=== PATIENT | female | born 1990 ===

== ENCOUNTER 2019-10-12 22:05 | Emergency (ER) | payer SELFPAY ==
[2019-10-12] MEDS ORDERED: NA CHLORIDE 0.9% 1,000 ML ONE (23:15)
[2019-10-12 23:27] LABS: Protime INR 0.95
[2019-10-12 23:28] LABS: Absolute Lymphocytes (CBC) 3.1 K/uL (0.7-4.9); Basophils % 0.6 % (0-1.3); Hematocrit 35.9 % (36.0-45.0); Lymphocytes % 32.7 % (15.3-44.8); MPV 7.7 fL (7.6-11.3)
[2019-10-12 23:42] LABS: ALT/SGPT 37 U/L (12-78); AST/SGOT 32 U/L (15-37); Albumin 3.1 g/dL (3.4-5.0); Alkaline Phosphatase 90 U/L (45-117); BUN Blood Urea Nitrogen 14 mg/dL (7-18); Bicarbonate 26 mmol/L (21-32); Bilirubin Direct < 0.1 mg/dL (0-0.2); Bilirubin Total 0.1 mg/dL (0.2-1.0); Glucose Level 82 mg/dL (74-106); Magnesium 2.2 mg/dL (1.8-2.4); NT PRO-BNP 19 pg/mL (<125); Potassium 3.7 mmol/L (3.5-5.1); Protein, Total 6.6 g/dL (6.4-8.2); Sodium Level 142 mmol/L (136-145); Troponin (Emerg Dept Use Only) < 0.02 ng/mL (0.0-0.045)
--- NOTE | 2019-10-12 23:57 | ER ---
Nurse's Notes [facility] Name: Mary Carrasco Age: 29 yrs Sex: Female : 1990 Arrival Date: 10/12/2019 Time: 22:08 Bed 14 Private MD: Diagnosis: Weakness;Dyspnea;Unspecified kidney failure-insufficency Presentation: 10/12 22:18 Presenting complaint: Patient states: Fatigue, shortness of breath, general weakness x4 lp1 days; States hx of asthma, no relief with inhaler; She feels like her iron is low. Transition of care: patient was not received from another setting of care. Onset of symptoms was October 12, 2019. Risk Assessment: Do you want to hurt yourself or someone else? Patient reports no desire to harm self or others. Initial Sepsis Screen: Does the patient meet any 2 criteria? No. Patient's initial sepsis screen is negative. Does the patient have a suspected source of infection? No. Patient's initial sepsis screen is negative. Care prior to arrival: None. 22:18 Method Of Arrival: Ambulatory lp1 22:18 Acuity: JENNIFER 3 lp1 Triage Assessment: 10/13 00:45 General: Appears in no apparent distress. Behavior is calm, cooperative. Respiratory: lc1 Onset: The symptoms/episode began/occurred. Respiratory: Reports shortness of breath at rest the patient has mild shortness of breath. 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 - Social history:: Smoking status: Patient/guardian denies using tobacco. - Ebola Screening: : No symptoms or risks identified at this time. - Family history:: not pertinent. Screenin:22 Abuse screen: Denies threats or abuse. Abuse screen: Denies injuries from another. lp1 Nutritional screening: No deficits noted. Tuberculosis screening: No symptoms or risk factors identified. Fall Risk None identified. Assessment: 22:21 General: Appears in no apparent distress. comfortable, Behavior is calm, cooperative. lc1 Pain: Denies pain. Neuro: No deficits noted. Cardiovascular: Rhythm is regular. Respiratory: Airway is patent Respiratory effort is even, unlabored, Breath sounds are clear bilaterally. GI: No signs and/or symptoms were reported involving the gastrointestinal system. : No signs and/or symptoms were reported regarding the genitourinary system. EENT: No signs and/or symptoms were reported regarding the EENT system. Derm: No signs and/or symptoms reported regarding the dermatologic system. Musculoskeletal: Parent/caregiver report the patient having feeling fatigue and weakness for several days, states she feel like she is anemic, with little bit of SOB. 23:00 Reassessment: No changes from previously documented assessment. Patient and/or family lc1 updated on plan of care and expected duration. Pain level reassessed. Patient is alert, oriented x 3, equal unlabored respirations, skin warm/dry/pink. 10/13 00:00 Reassessment: No changes from previously documented assessment. Patient and/or family lc1 updated on plan of care and expected duration. Pain level reassessed. Patient is alert, oriented x 3, equal unlabored respirations, skin warm/dry/pink. Patient states symptoms have improved. Vital Signs: 10/12 22:19 BP 119 / 71; Pulse 95; Resp 18; Temp 98.2(O); Pulse Ox 96% on R/A; Weight 98.43 kg (M); lp1 Height 5 ft. 4 in. (162.56 cm); Pain 0/10; 23:00 BP 91 / 61; Pulse 79; Resp 18; Pulse Ox 98% on R/A; lc1 10/13 00:00 BP 102 / 63; Pulse 75; Resp 18; Pulse Ox 100% on R/A; lc1 10/12 22:19 Body Mass Index 37.25 (98.43 kg, 162.56 cm) lp1 ED Course: 10/12 22:08 Patient arrived in ED. cl3 22:19 Triage completed. lp1 22:19 Arm band placed on. lp1 22:21 Chery Wallace is Primary Nurse. lc1 22:21 Patient has correct armband on for positive identification. Bed in low position. Call lc1 light in reach. Side rails up X 1. Pulse ox on. NIBP on. Door closed. Noise minimized. Warm blanket given. 22:21 No provider procedures requiring assistance completed. lc1 22:31 Berny Almazan MD is Attending Physician. [facility] 23:00 No apparent distress. Awaiting lab results. 1 23:00 Door closed. Lights dimmed. lc1 23:00 Inserted saline lock: 22 gauge in left antecubital area, using aseptic technique. Blood 1 collected. 23:56 Nissa Gong MD is Referral Physician. [facility] 10/13 00:43 IV discontinued, intact, bleeding controlled, Pressure dressing applied. 1 00:55 XRAY Chest (1 view) In Process Unspecified. EDMS Administered Medications: 10/12 23:16 Drug: NS 0.9% 1000 ml Route: IV; Rate: 1 bolus; Site: left antecubital; 1 10/13 00:28 Follow up: Response: No adverse reaction; IV Status: Completed infusion lc1 Outcome: 10/12 23:56 Discharge ordered by . [facility] 10/13 00:44 Discharged to home ambulatory. [facility] Condition: good Discharge instructions given to patient, Instructed on discharge instructions, follow up and referral plans. medication usage, Demonstrated understanding of instructions, follow-up care, medications, Prescriptions given X 1. 00:46 Patient left the ED. 1 Signatures: Dispatcher [employer] EDTX Berny Almazan MD MD cha Calhoun, Lisa 1 Megan Wick, RN RN lp1 Veronica Martin cl3
--- NOTE | 2019-10-12 23:58 | EDPHYS ---
Physician Documentation [facility] Name: Mary Carrasco Age: 29 yrs Sex: Female : 1990 Arrival Date: 10/12/2019 Time: 22:08 Bed 14 Private MD: ED Physician Berny Almazan HPI: 10/12 22:41 This 29 yrs old Female presents to ER via Ambulatory with complaints of julieta Shortness Of Breath, Weakness. 22:41 The patient has shortness of breath at rest, with light activity. Onset: The julieta symptoms/episode began/occurred 3 day(s) ago. Duration: The symptoms are continuous, and are unchanged since they started. Associated signs and symptoms: The patient has no apparent associated signs or symptoms. Severity of symptoms: At their worst the symptoms were very mild in the emergency department the symptoms are unchanged. The patient has not experienced similar symptoms in the past. 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 - Social history:: Smoking status: Patient/guardian denies using tobacco. - Ebola Screening: : No symptoms or risks identified at this time. - Family history:: not pertinent. ROS: 22:41 Constitutional: Negative for fever, chills, and weight loss, Eyes: Negative for injury, julieta pain, redness, and discharge, ENT: Negative for injury, pain, and discharge, Neck: Negative for injury, pain, and swelling, Cardiovascular: Negative for chest pain, palpitations, and edema, Abdomen/GI: Negative for abdominal pain, nausea, vomiting, diarrhea, and constipation, Back: Negative for injury and pain, : Negative for injury, bleeding, discharge, and swelling, MS/Extremity: Negative for injury and deformity, Skin: Negative for injury, rash, and discoloration, Neuro: Negative for headache, weakness, numbness, tingling, and seizure, Psych: Negative for depression, anxiety, suicide ideation, homicidal ideation, and hallucinations, Allergy/Immunology: Negative for hives, rash, and allergies, Endocrine: Negative for neck swelling, polydipsia, polyuria, polyphagia, and marked weight changes, Hematologic/Lymphatic: Negative for swollen nodes, abnormal bleeding, and unusual bruising. 22:41 Respiratory: Positive for cough, with no reported sputum. 22:41 MS/extremity: Negative for acute changes. Exam: 22:41 Constitutional: This is a well developed, well nourished patient who is awake, alert, julieta and in no acute distress. Head/Face: Normocephalic, atraumatic. Eyes: Pupils equal round and reactive to light, extra-ocular motions intact. Lids and lashes normal. Conjunctiva and sclera are non-icteric and not injected. Cornea within normal limits. Periorbital areas with no swelling, redness, or edema. ENT: Nares patent. No nasal discharge, no septal abnormalities noted. Tympanic membranes are normal and external auditory canals are clear. Oropharynx with no redness, swelling, or masses, exudates, or evidence of obstruction, uvula midline. Mucous membranes moist. Neck: Trachea midline, no thyromegaly or masses palpated, and no cervical lymphadenopathy. Supple, full range of motion without nuchal rigidity, or vertebral point tenderness. No Meningismus. Chest/axilla: Normal chest wall appearance and motion. Nontender with no deformity. No lesions are appreciated. Cardiovascular: Regular rate and rhythm with a normal S1 and S2. No gallops, murmurs, or rubs. Normal PMI, no JVD. No pulse deficits. Respiratory: Lungs have equal breath sounds bilaterally, clear to auscultation and percussion. No rales, rhonchi or wheezes noted. No increased work of breathing, no retractions or nasal flaring. Abdomen/GI: Soft, non-tender, with normal bowel sounds. No distension or tympany. No guarding or rebound. No evidence of tenderness throughout. Back: No spinal tenderness. No costovertebral tenderness. Full range of motion. Skin: Warm, dry with normal turgor. Normal color with no rashes, no lesions, and no evidence of cellulitis. MS/ Extremity: Pulses equal, no cyanosis. Neurovascular intact. Full, normal range of motion. Neuro: Awake and alert, GCS 15, oriented to person, place, time, and situation. Cranial nerves II-XII grossly intact. Motor strength 5/5 in all extremities. Sensory grossly intact. Cerebellar exam normal. Normal gait. Psych: Awake, alert, with orientation to person, place and time. Behavior, mood, and affect are within normal limits. 22:41 Musculoskeletal/extremity: DVT Exam: No signs of deep vein thrombosis. no pain, no swelling, no tenderness, negative Homans' sign noted on exam, no appreciated bluish discoloration, no erythema, no increased warmth. Vital Signs: 22:19 BP 119 / 71; Pulse 95; Resp 18; Temp 98.2(O); Pulse Ox 96% on R/A; Weight 98.43 kg (M); lp1 Height 5 ft. 4 in. (162.56 cm); Pain 0/10; 23:00 BP 91 / 61; Pulse 79; Resp 18; Pulse Ox 98% on R/A; 1 10/13 00:00 BP 102 / 63; Pulse 75; Resp 18; Pulse Ox 100% on R/A; [facility] 10/12 22:19 Body Mass Index 37.25 (98.43 kg, 162.56 cm) lp1 MDM: 10/12 22:[address] [facility] 22:45 Data reviewed: vital signs, nurses notes, lab test result(s), EKG, radiologic studies, [facility] CT scan, plain films. 10/12 22:41 Order name: Basic Metabolic Panel; Complete Time: 23:49 [facility] 10/12 22:41 Order name: CBC with Diff; Complete Time: 23:55 [facility] 10/12 22:41 Order name: LFT's; Complete Time: 23:49 [facility] 10/12 22:41 Order name: Magnesium; Complete Time: 23:49 [facility] 10/12 22:41 Order name: NT PRO-BNP; Complete Time: 23:49 [facility] 10/12 22:41 Order name: PT-INR; Complete Time: 23:49 [facility] 10/12 22:41 Order name: Troponin (emerg Dept Use Only); Complete Time: 23:49 [facility] 10/12 22:41 Order name: XRAY Chest (1 view) [facility] 10/12 22:41 Order name: EKG; Complete Time: 22:42 [facility] 10/12 22:41 Order name: Cardiac monitoring; Complete Time: 23:37 [facility] 10/12 22:41 Order name: EKG - Nurse/Tech; Complete Time: 23:37 [facility] 10/12 22:41 Order name: IV Saline Lock; Complete Time: 23:37 [facility] 10/12 22:41 Order name: D-Dimer; Complete Time: 23:49 [facility] 10/12 22:41 Order name: Labs collected and sent; Complete Time: 23:37 [facility] 10/12 22:41 Order name: O2 Per Protocol; Complete Time: 23:37 [facility] 10/12 22:41 Order name: O2 Sat Monitoring; Complete Time: 23:38 [facility] 10/12 22:41 Order name: Urine Test (obtain specimen); Complete Time: 23:37 [facility] 10/12 22:41 Order name: Urine Dipstick-Ancillary (obtain specimen); Complete Time: 23:37 [facility] Administered Medications: 23:16 Drug: NS 0.9% 1000 ml Route: IV; Rate: 1 bolus; Site: left antecubital; [facility] 10/13 00:28 Follow up: Response: No adverse reaction; IV Status: Completed infusion [facility] Disposition: 10/12/19 23:56 Discharged to Home. Impression: Weakness, Dyspnea, Unspecified kidney failure - insufficency. - Condition is Stable. - Discharge Instructions: Weakness, Fatigue, Weakness, [id number], Chronic Kidney Disease, Adult, [id number]. - Prescriptions for Vitamin 27- 0.8 mg Oral Tablet - take 1 tablet by ORAL route once daily; 30 tablet. - Medication Reconciliation Form, Thank You Letter, Antibiotic Education, Prescription Opioid Use form. - Follow up: Private Physician; When: 2 - 3 days; Reason: Recheck today's complaints, Continuance of care, Re-evaluation by your physician. Follow up: Nissa Gong; When: 2 - 3 days; Reason: Recheck today's complaints, Re-evaluation by your physician. - Problem is new. - Symptoms have improved. Signatures: Dispatcher [employer] EDBerny Zavaleta MD MD cha Calhoun, Lisa 1 Megan Wick, RN RN lp1 Corrections: (The following items were deleted from the chart) 00:46 10/12 23:56 10/12/2019 23:56 Discharged to Home. Impression: Weakness; Dyspnea; lc1 Unspecified kidney failure - insufficency. Condition is Stable. Discharge Instructions: Weakness, Fatigue, Weakness, Nbut-xo-Nrad, Chronic Kidney Disease, Adult, [id number]. Prescriptions for Vitamin 27-0.8 mg Oral Tablet - take 1 tablet by ORAL route once daily; 30 tablet. and Forms are Medication Reconciliation Form, Thank You Letter, Antibiotic Education, Prescription Opioid Use. Follow up: Private Physician; When: 2 - 3 days; Reason: Recheck today's complaints, Continuance of care, Re-evaluation by your physician. Follow up: Nissa Gong; When: 2 - 3 days; Reason: Recheck today's complaints, Re-evaluation by your physician. Problem is new. Symptoms have improved. julieta
[2019-10-13 01:00] VITALS: TEMP 98.2
[2019-10-13 01:03] VITALS: BP 102/63; O2SAT 100
--- NOTE | 2019-10-13 08:18 | RAD REPORT ---
EXAM DESCRIPTION: RAD - Chest Single View - 10/13/2019 12:53 am CLINICAL HISTORY: Shortness of breath COMPARISON: None. TECHNIQUE: AP portable chest image was obtained 2351 hours . FINDINGS: Lungs are clear. Heart and vasculature are normal. No measurable pleural effusion and no p neumothorax. No acute bony abnormality seen. No acute aortic findings suspected. IMPRESSION: No acute cardiopulmonary process.
--- NOTE | 2019-10-13 13:47 | EKG ---
Test Date: 2019-10-12 Test Time: 23:20:18 Field Contact Person: ELIAS MEASUREMENT RESULTS: Intervals: Rate: 74 WV: 140 QRSD: 86 QT: 420 QTc: 466 Lesage: P: 42 WV: 140 QRS: 53 T: 43 INTERPRETIVE STATEMENTS: Normal sinus rhythm Normal ECG No previous ECG available for comparison Electronically Signed On 10-13-19 13:46:23 HOUSEKEEPING DIRECTOR by Lucien Lora
== END 2019-10-13 00:46 | disposition home or self-care (01) ==
LOC: ER 22:05
DX: R53.1 Weakness (principal); N19 Unspecified kidney failure; R73.03 Prediabetes; F90.9 Attention-deficit hyperactivity disorder, unspecified type; Z88.2 Allergy status to sulfonamides
CPT/HCPCS: 36415; 71045; 80048; 80076; 83735; 83880; 84484; 85025; 85379; 85610; 93005; 96360; 99284; J7030